=== PATIENT | female | born 2000 | race Caucasian/White ===

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

== ENCOUNTER 2021-08-30 14:30 | Inpatient (IN) | payer MEDICAID ==
[2021-08-30] VITALS (9 sets, daily range): BP systolic 115–133; BP diastolic 60–88
[~2021-08-30] VITALS: Ht 160 cm; Wt 58.4 kg
[~2021-08-30 14:30] MED LIST changes: +NITR-65 PO; +PHEN-640 PO
[2021-08-30] MEDS ORDERED: D5 LR IV SOLUTION 1,000 ML IV ONE (14:48)
[2021-08-30] MEDS ORDERED: MINERAL OIL 30 ML OIL TOP PRN (15:00)
[2021-08-30] MEDS ORDERED: D5 LR IV SOLUTION 1,000 ML IV SCH (15:00)
[2021-08-30] MEDS ORDERED: LIDOCAINE/EPI 2% 1:200,00 (XYLOCAINE) 10 ML VIAL ONE (15:04)
[2021-08-30] MEDS ORDERED: OXYTOCIN PRE-MIX DRIP 500 ML IV ONE (15:19)
[2021-08-30] MEDS ORDERED: morphine INJ 10 MG/ML 1ML (SYR OR VIAL) ONE (15:20)
[2021-08-30 15:39] LABS: BASOPHILS % (AUTO) 0 % (0-10); EOSINOPHILS % (AUTO) 0 % (0-10); HEMATOCRIT 36 % (35-52); HEMOGLOBIN 12.3 g/dL (11.5-16.0); LYMPHOCYTES # (AUTO) 2.3 X 10^3 (1.0-4.0); LYMPHOCYTES % (AUTO) 21 % (12-44); MEAN CORPUSCULAR HEMOGLOBIN 31 pg (25-34); MEAN CORPUSCULAR HGB CONC 34 g/dL (32-36); MEAN CORPUSCULAR VOLUME 90 fL (80-99); MEAN PLATELET VOLUME 8.7 fL (9.0-12.2); MONOCYTES # (AUTO) 0.7 X 10^3 (0.0-1.0); MONOCYTES % (AUTO) 6 % (0-12); NEUTROPHILS % (AUTO) 72 % (42-75); PLATELET COUNT 308 10^3/uL (130-400); WHITE BLOOD COUNT 11.2 10^3/uL (4.3-11.0)
[2021-08-30] MEDS ORDERED: TETANUS,DIPTH,PERTUSS P/F (BOOSTRIX) 0.5 ML VIAL IM ONE (16:00)
[2021-08-30] MEDS ORDERED: MEASLES,MUMPS,RUBELLA 1 EA INJ SQ ONE (16:00)
[2021-08-30] MEDS ORDERED: BENZOCAINE/MENTHOL (DERMOPLAST) 56 ML CAN TP PRN (16:00)
[2021-08-30] MEDS ORDERED: WITCH HAZEL(TUCKS) 40 EA JAR TOP PRN (16:00)
[2021-08-30] MEDS ORDERED: OXYTOCIN PRE-MIX DRIP 500 ML IV SCH ×2 (16:00)
--- NOTE | 2021-08-30 16:11 | OB Labor & Delivery Record ---
L&D History Date of Service Date of Service: Aug 30, 2021 History Expected Date of Delivery: Sep 05, 2021 Gestational Age in Weeks: 39 Hx : 2 Hx Para: 1 Complications Events: Routine care (Inadequate care - last visit > 2 months prior to delivery) Operative Indications (Cesarea: N/A-Vaginal Delivery Intrapartal Events: None L&D Stage1 Stage One Onset of Labor - Date: Aug 30, 2021 Monitors and Tracing Monitor Mode: External Monitor Accelerations: Uniform Monitor Decelerations: None Station: +1 [employer] Variability: Moderate (11-25) Short Term Variability: Present Presentation: Vertex Signs of Distress by FHT Signs of Distress none Rupture of Membranes Spontaneous Ruture of Membrane: No Amniotic Membrane Fluid Desc.: Clear Vaginal Bleeding Description: Normal Show Induction/Anesthesia Medications pudundal nerve block - 2% lidocaine with epi L&D Stage2 Stage Two Stage II Date: Aug 30, 2021 Monitors and Tracing Monitor Mode: External Monitor Accelerations: Uniform Monitor Decelerations: None Intermediate Variability: Moderate (11-25) Short Term Variability: Present Position: Right Occiput Anterior Presentation: Vertex Signs of Distress by FHT Signs of Distress none Cord Descript/Complications Cord Vessel Description: 3 Vessels Delivery Type Infant Delivery Method: Spontaneous Vaginal Episiotomy/Perineal Laceration Laceraction(s)/Extensions: Yes Episiotomy Description: None Location Modifier: Left, Right Sutures Used: Chromic Degree (describe repair) bilateral periurethral - repaired with 3O chromic interrupted stitch Condition of Infant Delivery 1 minute Comment: 9 5 minute Comment: 9 Condition of Infant Condition of : Living Exam: No Observed Abnormalities Resuscitation Resuscitation: N/A - Spontaneous Resp L&D Stage3 Placenta Delivery Placenta Delivery: Spontaneous Delivery Summary Summary Estimated blood loss (mL): 250 Attending at delivery: Dr. Fox Condition of Delivery Examined: Cervix Examined Post Hemorrhage: No Condition of Mother stable Condition of Infant (s) CRISTINA Hernandez MD Aug 30, 2021 16:11
[2021-08-30] MEDS ORDERED: MINERAL OIL CONCENTRATE 99.9% 15 ML UDC PO PRN (16:15)
--- NOTE | 2021-08-30 16:21 | History & Physical-OB/GYN ---
History of Present Illness History of Present Illness Reason for visit/HPI Labor Date of Admission 08/30/2021 Time Seen by a Provider: 15:00 I consulted on this patient on 08/30/21 16:16 Attending Physician Cristina Mcclelland MD Admitting Physician Mikey Ramsey - [facility] Allergies and Home Medications Allergies Coded Allergies: No Known Drug Allergies (Unverified , 01/20/14) Patient Home Medication List Home Medication List Reviewed: Yes Past Yofckzo-Ewfggi-Kqnwhx Hx Patient Social History Marrital Status: cohabiting Smoking Status: Never a Smoker Recent Hopitalizations: No Have you traveled recently?: No Alcohol Use?: No Immunizations Up To Date Tetanus Booster (TDap): Less than 5yrs Pediatric: No Seasonal Allergies Seasonal Allergies: No Surgeries Yes Bowel Surgery, Gallbladder Respiratory No Currently Using CPAP: No Currently Using BIPAP: No Cardiovascular No Neurological No Reproductive System : Yes Expected Date of Delivery: Sep 05, 2021 Hx : 2 Hx Para: 1 Hx Reproductive Disorders: No Female Reproductive Disorders: Denies Genitourinary No Gastrointestinal No Musculoskeletal No Endocrine History of Endocrine Disorders: No HEENT History of HEENT Disorders: No Cancer No Did You Recieve Any Treatments: No Psychosocial History of Psychiatric Problem: No Integumentary History of Skin or Integumenta: No Blood Transfusions Adverse Reaction to a Blood Tr: No Reviewed Nursing Assessment Reviewed/Agree w Nursing PMH: Yes Family Medical History Family Hx: Family history: Diabetes mellitus 19 MOTHER (Reports runs on maternal side.) Family history: Hypertension 19 FATHER (dad's mother) Kidney disease 19 MOTHER (mother's grandfather.) Malignant neoplasm of lung 19 MOTHER ( dad's mother) Stroke 19 MOTHER (grandpa of pt's mother ) Visual impairment 19 MOTHER (far sight) No Family History of: Abdominal aortic aneurysm Gladbrook's disease Alcoholism Aphasia Cancer Cancer of colon Cataract Chest pain Congenital heart disease Congestive heart failure Cystic fibrosis Dementia Dysphagia Family history: Allergy Family history: Alzheimer's disease Family history: Arthritis Family history: Asthma Family history: Breast disease Family history: Cardiovascular disease Family history: Coronary thrombosis Family history: Gastrointestinal disease Family history: Glaucoma Family history: Osteoporosis Family history: Thyroid disorder Headache Hearing loss Heart disease Hereditary disease History of - anemia History of - disorder History of - respiratory disease History of drug abuse Human immunodeficiency virus (HIV) seropositivity Hypercholesterolemia Infertile Myocardial infarction Parkinson's disease Prostate cancer Psychotic disorder Seizure disorder Tuberculosis Review of Systems Constitutional: see HPI EENTM: see HPI Respiratory: no symptoms reported Cardiovascular: no symptoms reported Gastrointestinal: no symptoms reported, see HPI Musculoskeletal: no symptoms reported Skin: no symptoms reported Psychiatric/Neurological: No Symptoms Reported Physical Exam Physical Exam Vital Signs Vital Signs Date Time Temp Pulse Resp B/P (MAP) Pulse Ox O2 Delivery O2 Flow Rate FiO2 08/30/21 16:55 36.5 106 20 129/62 (84) Room Air 08/30/21 16:41 36.6 96 20 125/60 (81) Room Air 08/30/21 16:25 36.4 129 20 133/72 (92) Room Air 08/30/21 16:15 37.3 105 20 129/65 (86) Room Air 08/30/21 16:00 37.0 105 20 133/67 (89) Room Air 08/30/21 15:15 36.8 84 20 132/88 (103) Room Air 08/30/21 14:50 36.8 96 20 122/84 (97) 94 Room Air Capillary Refill : < 3 sec Labs Laboratory Tests 08/30/21 15:20: White Blood Count 11.2H, Red Blood Count 3.97, Hemoglobin 12.3, Hematocrit 36, Mean Corpuscular Volume 90, Mean Corpuscular Hemoglobin 31, Mean Corpuscular Hemoglobin Concent 34, Red Cell Distribution Width 12.2, Platelet Count 308, Mean Platelet Volume 8.7L, Immature Granulocyte % (Auto) 1, Neutrophils (%) (Auto) 72, Lymphocytes (%) (Auto) 21, Monocytes (%) (Auto) 6, Eosinophils (%) (Auto) 0, Basophils (%) (Auto) 0, Neutrophils # (Auto) 8.0H, Lymphocytes # (Auto) 2.3, Monocytes # (Auto) 0.7, Eosinophils # (Auto) 0.0, Basophils # (Auto) 0.0, Immature Granulocyte # (Auto) 0.1 08/30/21 17:05: Urine Color REDH, Urine Clarity CLEAR, Urine pH 7.5, Urine Specific [place] 1.01 5L, Urine Protein TRACEH, Urine Glucose (UA) TRACEH, Urine Ketones NEGATIVE, Urine Nitrite NEGATIVE, Urine Bilirubin NEGATIVE, Urine Urobilinogen 0.2, Urine Leukocyte Esterase 1+H, Urine RBC (Auto) 3+H, Urine RBC >100H, Urine WBC 0-2, Urine Crystals NONE, Urine Bacteria TRACE, Urine Casts NONE, Urine Mucus NEGATIVE, Urine Culture Indicated NO, Urine Opiates Screen NEGATIVE, Urine Oxycodone Screen NEGATIVE, Urine Methadone Screen NEGATIVE, Urine Propoxyphene Screen NEGATIVE, Urine Barbiturates Screen NEGATIVE, Ur Tricyclic Antidepressants Screen NEGATIVE, Urine Phencyclidine Screen NEGATIVE, Urine Amphetamines Screen POSITIVEH, Urine Methamphetamines Screen POSITIVEH, Urine Benzodiazepines Screen NEGATIVE, Urine Cocaine Screen NEGATIVE, Urine Cannabinoids Screen NEGATIVE General Appearance: Other (Breathing thru contractions, otherwise A&O x 3, NAD) Respiratory: No Respiratory Distress Abdominal: non tender, soft Gynecology/General: No urethral discharge, No lesions Labia: WNL Vagina: WNL Cervix: WNL Uterus: WNL Pelvic Exam: normal external exam Extremity: Normal Range of Motion, Non Tender, No Calf Tenderness Assessment/Plan Assessment and Plan @ 39 weeks gestation in active labor Plan: Admit for delivery Admission Diagnosis Labor of term Inadequate care Admission Status: Inpatient Order (span 2 midnights) Reason for Inpatient Admission: Labor Diagnosis/Problems Diagnosis/Problems (1) Grand multiparity in labor and delivery, delivered CRISTINA MCCLELLAND MD Aug 30, 2021 16:21
[2021-08-30] MEDS: ACETAMINOPHEN 500 MG TAB (TYLENOL) PO PRN (16:24)
[2021-08-30 17:24] LABS: BILIRUBIN,URINE NEGATIVE (NEGATIVE); CLARITY,URINE CLEAR; COLOR,URINE RED; GLUCOSE, URINE (UA) TRACE (NEGATIVE); KETONES,URINE NEGATIVE (NEGATIVE); LEUKOCYTE ESTERASE ,URINE 1+ (NEGATIVE); NITRITE,URINE NEGATIVE (NEGATIVE); PH,URINE 7.5 (5-9); PROTEIN,URINE TRACE (NEGATIVE)
[2021-08-30 17:31] LABS: BACTERIA,URINE TRACE /HPF; RBC,URINE >100 /HPF; WBC,URINE 0-2 /HPF
[2021-08-30 18:18] LABS: AMPHETAMINE SCREEN, URINE POSITIVE (NEGATIVE); BARBITURATE SCREEN URINE NEGATIVE (NEGATIVE); BENZODIAZEPINES SCREEN URINE NEGATIVE (NEGATIVE); CANNABINOID SCREEN, URINE NEGATIVE (NEGATIVE); COCAINE SCREEN URINE NEGATIVE (NEGATIVE); METHADONE STAT NEGATIVE (NEGATIVE); METHAMPHETAMINE SCREEN URINE S POSITIVE (NEGATIVE); OPIATE SCREEN URINE NEGATIVE (NEGATIVE); OXYCODONE STAT NEGATIVE (NEGATIVE); PROPOXYPHENE STAT NEGATIVE (NEGATIVE); TRICYCLIC ANTIDEPRESSANTS SCRE NEGATIVE (NEGATIVE)
[2021-08-30] MEDS: IBUPROFEN 600 MG (MOTRIN) TAB PO SCH (21:14)
[2021-08-30] MEDS: DOCUSATE SODIUM 100 MG (COLACE) CAP PO SCH (21:14)
[2021-08-30] MEDS ORDERED: CATHETER FLUSH 10 ML SYR IV SCH ×2 (22:00)
[2021-08-31 01:08] VITALS: BP 131/85
[2021-08-31] MEDS: ACETAMINOPHEN 500 MG TAB (TYLENOL) PO PRN ×3 (01:08→16:54)
[2021-08-31 04:03] VITALS: BP 129/79
[2021-08-31] MEDS: IBUPROFEN 600 MG (MOTRIN) TAB PO SCH ×3 (04:03→16:55)
--- NOTE | 2021-08-31 06:46 | Postpartum Progress Note ---
Note Note Day # [1] Subjective: Patient is without complaints. Ambulating, voiding. Tolerating a regular diet without nausea or vomiting. Normal lochia. Pain is well controlled with oral pain medications. Bottlefeeding. no c/o Objective: Vital signs are stable, afebrile Physical Exam: General - Alert and oriented, no apparent distress Abdomen - Soft, nontender, non-distended, fundus firm below umbilicus Extremities - no edema, negative Cindy's bilaterally Assessment: [] post- day # [1], status post vaginal delivery. Recovering well, hemodynamically stable Plan: Routine care. Encourage breast feeding. Encourage ambulation. Ferrous sulfate supplementation. Plan for discharge pending disposition Social work consult today for inadequate care, methamphetamine use Plans to f/u with primary OB - will ask social work to arrange apt for the patient Vitals - Labs Vital Signs - I&O Vital Signs Date Time Temp Pulse Resp B/P (MAP) Pulse Ox O2 Delivery O2 Flow Rate FiO2 08/31/21 04:03 36.2 72 18 129/79 (96) 100 Room Air 08/31/21 01:08 36.8 79 18 131/85 (100) Room Air 08/30/21 21:14 37.0 86 18 118/78 (91) 97 Room Air 08/30/21 20:26 37.3 88 20 115/73 (87) Room Air 08/30/21 16:55 36.5 106 20 129/62 (84) Room Air 08/30/21 16:41 36.6 96 20 125/60 (81) Room Air 08/30/21 16:25 36.4 129 20 133/72 (92) Room Air 08/30/21 16:15 37.3 105 20 129/65 (86) Room Air 08/30/21 16:00 37.0 105 20 133/67 (89) Room Air 08/30/21 15:15 36.8 84 20 132/88 (103) Room Air 08/30/21 14:50 36.8 96 20 122/84 (97) 94 Room Air I & O 08/31/21 07:00 Intake Total 500 ml Balance 500 ml Labs Laboratory Tests 08/30/21 15:20: White Blood Count 11.2H, Red Blood Count 3.97, Hemoglobin 12.3, Hematocrit 36, Mean Corpuscular Volume 90, Mean Corpuscular Hemoglobin 31, Mean Corpuscular Hemoglobin Concent 34, Red Cell Distribution Width 12.2, Platelet Count 308, Mean Platelet Volume 8.7L, Immature Granulocyte % (Auto) 1, Neutrophils (%) (Auto) 72, Lymphocytes (%) (Auto) 21, Monocytes (%) (Auto) 6, Eosinophils (%) (Auto) 0, Basophils (%) (Auto) 0, Neutrophils # (Auto) 8.0H, Lymphocytes # (Auto) 2.3, Monocytes # (Auto) 0.7, Eosinophils # (Auto) 0.0, Basophils # (Auto) 0.0, Immature Granulocyte # (Auto) 0.1 08/30/21 17:05: Urine Color REDH, Urine Clarity CLEAR, Urine pH 7.5, Urine Specific [place] 1.015L, Urine Protein TRACEH, Urine Glucose (UA) TRACEH, Urine Ketones NEGATIVE, Urine Nitrite NEGATIVE, Urine Bilirubin NEGATIVE, Urine Urobilinogen 0.2, Urine Leukocyte Esterase 1+H, Urine RBC (Auto) 3+H, Urine RBC >100H, Urine WBC 0-2, Urine Crystals NONE, Urine Bacteria TRACE, Urine Casts NONE, Urine Mucus NEGATIVE, Urine Culture Indicated NO, Urine Opiates Screen NEGATIVE, Urine Oxycodone Screen NEGATIVE, Urine Methadone Screen NEGATIVE, Urine Propoxyphene Screen NEGATIVE, Urine Barbiturates Screen NEGATIVE, Ur Tricyclic Antidepressants Screen NEGATIVE, Urine Phencyclidine Screen NEGATIVE, Urine A mphetamines Screen POSITIVEH, Urine Methamphetamines Screen POSITIVEH, Urine Benzodiazepines Screen NEGATIVE, Urine Cocaine Screen NEGATIVE, Urine Cannabinoids Screen NEGATIVE CRISTINA MCCLELLAND MD Aug 31, 2021 06:46
[2021-08-31 08:50] VITALS: BP 122/74
[2021-08-31] MEDS: PRENATAL VITAMIN 1 EA TAB PO SCH (08:52)
[2021-08-31] MEDS: DOCUSATE SODIUM 100 MG (COLACE) CAP PO SCH ×2 (08:52→21:34)
[2021-08-31] MEDS ORDERED: TETANUS,DIPTH,PERTUSS P/F (BOOSTRIX) 0.5 ML VIAL IM ONE (12:34)
[2021-08-31 13:00] VITALS: BP 117/62
[2021-08-31 17:15] VITALS: BP 129/76
[2021-08-31 21:00] VITALS: BP 117/72
[2021-09-01 02:57] VITALS: BP 116/63
[2021-09-01 09:30] VITALS: BP 113/67
[2021-09-01] MEDS: PRENATAL VITAMIN 1 EA TAB PO SCH (10:14)
[2021-09-01] MEDS: DOCUSATE SODIUM 100 MG (COLACE) CAP PO SCH (10:15)
[2021-09-01] MEDS: IBUPROFEN 600 MG (MOTRIN) TAB PO SCH (10:15)
[2021-09-01] MEDS: ACETAMINOPHEN 500 MG TAB (TYLENOL) PO PRN (10:15)
[2021-09-01] MEDS ORDERED: ACET-93 PO (12:16)
[2021-09-01] MEDS ORDERED: IBUP-844 PO (12:16)
--- NOTE | 2021-09-01 12:18 | Discharge Inst-Women's Service ---
Discharge Inst-Women's Serv Depart Medication/Instructions New, Converted or Re-Newed RX: Transmitted to Pharmacy Final Diagnosis 39 week gestation + UDS Limited PNC precipitous vaginal delivery Problems Reviewed?: Yes Consults/Follow Up Additional Follow Up: Yes ([address] Vaughan) Activity Activity: Activity as Tolerated Driving Instructions: You May Drive NO SMOKING: NO SMOKING Nothing Inside Vagina: No Douching, No [place], No Tampons Diet Discharge Diet: No Restrictions Symptoms to Report to : Swelling Increased, Bleeding Excessive, Pain Increased, Fever Over 101 Degrees F, Vaginal Bleeding Increase, Cramps in Feet or Legs, Vaginal Discharge Foul For Any Problems or Questions: Contact Your Physician LIZETTE HUSSEIN DO Sep 01, 2021 12:18
[2021-09-01 13:27] VITALS: BP 106/64
[2021-09-01 14:40] VITALS: BP 106/64
== END 2021-09-01 14:40 | disposition home or self-care (01) | DRG 807 ==
LOC: WSo 14:30 → LDRP 14:30 → WSo 14:31 → LDRP 21:00
PROVIDERS: ADMIT Pediatrics; ATTEND Obstetrics & Gynecology
PROC: 10E0XZZ Delivery of Products of Conception, External Approach (ICD-10-PCS; principal; 2021-08-30)
PROC: 0UQMXZZ Repair Vulva, External Approach (ICD-10-PCS; 2021-08-30)
DX: O71.82 Other specified trauma to perineum and vulva (principal); Z37.0 Single live birth; Z3A.39 39 weeks gestation of pregnancy
CPT/HCPCS: 36415; 80306; 81000; 85025; 86850; 86900; 86901; 90715